=== PATIENT | female | born 1980 | race Caucasian/White ===

== ENCOUNTER 2022-01-14 07:04 | Inpatient (IN) | payer OTHER ==
[~2022-01-14] VITALS: Ht 154.9 cm; Wt 59.0 kg
[~2022-01-14 07:04] MED LIST: PRENATABS FA TA1 TAB PO
--- NOTE | 2022-01-14 07:15 | NUR ---
SE RECIBE FEMINA DE 41 ANOS ALERTA Y ORIENTADA X3. REFIERE DOLOR PELVICO LADO DERECHO QUE SE IRRADIA HACIA ESPALDA DESDE LA MADRUGADA DE HOY. SE MIDEN S/V Y SE UBICA EN SENIA [address] CON BARANDAS ELEVADAS PENDIENTE A EVALUACION MEDICA.
--- NOTE | 2022-01-14 08:28 | NUR ---
SE LE ORIENTA A PACIENTE SOBRE LAS ORDENES MEDICAS, REFIERE ENTEDER LAS MISMAS. SE CANALIZA Y SE LE COLOCA LOS IVF'S, SE LE ALICE LAS MUETRAS Y SE LE ADMINISTRAN LOS MEDICAMENTOS. SE NOTIFICA CT ABDOMINAL, MARIELA LAS ORDENES MEDICAS.
--- NOTE | 2022-01-14 19:39 | NUR ---
SE REALIZA CULTIVO DE CERVIX POR DR MOFFETT BAJO MEDIDAS ASEPTICAS.
[2022-01-17] MEDS ORDERED: FLUCONAZOLE150 MG PO (12:54)
[2022-01-17] MEDS ORDERED: IBU800 MG PO (12:54)
[2022-01-17] MEDS ORDERED: MORGIDOX100 MG PO (12:55)
== END 2022-01-17 14:09 | disposition home or self-care (01) | DRG 759 ==
LOC: ER 07:04 → OB/GYN 20:07
PROVIDERS: ADMIT Obstetrics & Gynecology; ATTEND Obstetrics & Gynecology
PROC: BW4GZZZ Ultrasonography of Pelvic Region (ICD-10-PCS; principal; 2022-01-14)
PROC: BW2110Z Computerized Tomography (CT Scan) of Abdomen and Pelvis using Low Osmolar Contrast, Unenhanced and Enhanced (ICD-10-PCS; 2022-01-14)
DX: N70.93 Salpingitis and oophoritis, unspecified (principal); N83.291 Other ovarian cyst, right side; B95.1 Streptococcus, group B, as the cause of diseases classified elsewhere